=== PATIENT | male | born 1985 | race African-American/Black ===

== ENCOUNTER 2021-07-01 22:46 | Emergency (ER) | payer MEDICAID ==
[~2021-07-01] VITALS: Ht 177.8 cm; Wt 77.0 kg
[2021-07-01 22:50] VITALS: BP 141/90
== END 2021-07-02 01:31 | disposition left against medical advice (07) ==
LOC: ER 22:46
DX: Z53.21 Procedure and treatment not carried out due to patient leaving prior to being seen by health care provider (principal)

== ENCOUNTER 2022-04-05 12:37 | Emergency (ER) | payer MEDICAID, OTHER ==
[~2022-04-05] VITALS: Ht 177.8 cm; Wt 75.0 kg
[2022-04-05 12:39] VITALS: BP 150/86
[2022-04-05] MEDS ORDERED: ACETAMINOPHEN 325MG TABLET PO ONE (12:45)
[2022-04-05] MEDS ORDERED: ACET-2708 MT (14:53)
== END 2022-04-05 16:36 | disposition home or self-care (01) ==
LOC: ER 12:37
DX: M25.552 Pain in left hip (principal); M79.641 Pain in right hand; Z88.6 Allergy status to analgesic agent; J45.909 Unspecified asthma, uncomplicated; V03.131A Pedestrian on standing electric scooter injured in collision with car, pick-up or van in traffic accident, initial encounter; Y93.89 Activity, other specified; Y92.488 Other paved roadways as the place of occurrence of the external cause
CPT/HCPCS: 29125; 71045; 72170; 73030; 73130; 73560; 99284